=== PATIENT | female | born 1970 | race Two or more races ===

== ENCOUNTER → 2025-04-08 | Outpatient (CLI) | payer MEDICAID, SELFPAY ==
--- NOTE | 2025-04-08 08:30 | XR_ITS ---
Examination: Screening digital mammography, bilateral Computer aided detection 3-D breast Tomosynthesis, bilateral Date and time of exam: April 08, 2025 0804 hours Compared to mammograms dating to 08/12/2016 Indication: Screening Technique: Nonmagnified MLO, CC views of the breasts to been obtained, reconstructed from 3-D Tomosynthesis images. R2 computer aided detection program utilized for evaluation of suspicious masses and/or abnormal calcifications. 3-D Tomosynthesis images obtained. Findings: Scattered areas of fibroglandular density. 12 mm focal asymmetry outer left breast 8.3 cm from the nipple Impression: BI-RADS Category 0: Incomplete: Need additional imaging evaluation 12 mm focal asymmetry outer left breast 8.3 cm from the nipple, recommend follow-up spot tomographic views upper outer quadrant left breast left breast sonography to complete the workup.
== END | disposition home or self-care (01) ==
PROVIDERS: PCP Student in an Organized Health Care Education/Training Program; Referring Provider Student in an Organized Health Care Education/Training Program; Visit Provider Student in an Organized Health Care Education/Training Program
DX: Z12.31 Encounter for screening mammogram for malignant neoplasm of breast (principal); N64.89 Other specified disorders of breast
CPT/HCPCS: 77063; 77067

== ENCOUNTER → 2025-07-01 | Outpatient (CLI) | payer MEDICAID, SELFPAY ==
--- NOTE | 2025-07-01 14:00 | XR_ITS ---
Examination: Breast ultrasound, unilateral, left Date and time of exam: July 01, 2020 03/30/2020 1:00 PM INDICATIONS: Mammogram April 08, 2025 12 mm focal asymmetry outer left breast Technique: Real-time gtz scale ultrasonographic imaging performed left breast including all 4 quadrants as well as nipple retroareolar and axillary region. Findings: No cystic or solid mass IMPRESSION: BI-RADS Category 1: Negative study
--- NOTE | 2025-07-01 14:30 | XR_ITS ---
Examination: Diagnostic digital mammography, unilateral, left Computer aided detection 3-D breast Tomosynthesis, unilateral Date and time of exam: August 31, 2025 1437 hours INDICATIONS: Mammogram April 08, 2025 12 mm focal asymmetry left breast Technique: Nonmagnified MLO, CC views of the left breast have been obtained, reconstructed from 3-D Tomosynthesis images. R2 computer aided detection program utilized for evaluation of suspicious masses and/or abnormal calcifications. 3-D Tomosynthesis images obtained. Findings: Scattered areas of fibroglandular density No suspicious masses confirmed on the spot compression views Impression: BI-RADS category 2: Benign findings Return to yearly follow-up mammography
== END | disposition home or self-care (01) ==
PROVIDERS: Referring Provider Nurse Practitioner Family; Visit Provider Nurse Practitioner Family
DX: R92.322 Mammographic fibroglandular density, left breast (principal)
CPT/HCPCS: 76641; 77061; 77065; G0279